=== PATIENT | female | born 1995 | race African-American/Black ===

== ENCOUNTER 2017-12-18 13:16 | Emergency (ER) | payer BC ==
[2017-12-18 15:02] VITALS: BP 126/65
--- NOTE | 2017-12-18 15:25 | UC ---
Throat Pain/Nasal Issac HPI - HPI Summary HPI Summary: [address] x 3 days no f/c no n/v/d mild GARSIA and myalgias taking liquids OK - History of Current Complaint Chief Complaint: UCRespiratory Stated Complaint: SORE THROAT Time Seen by Provider: 12/18/17 15:14 Hx Obtained From: Patient Hx Last Menstrual Period: 11/20/17 Onset/Duration: Gradual Onset, Lasting Days Severity: Severe Pain Intensity: 10 Cough: None - Epiglottits Risk Factors Epiglottis Risk Factors: Negative - Allergies/Home Medications Allergies/Adverse Reactions: Allergies Allergy/AdvReac Type Severity Reaction Status Date / Time No Known Allergies Allergy Verified 12/18/17 15:01 Home Medications: Home Medications Acetaminophen [Acetaminophen Extra Strength] 1,000 mg PO 12/18/17 [History] Ibuprofen 600 mg PO 12/18/17 [History] PMH/Surg Hx/FS Hx/Imm Hx Previously Healthy: Yes - Surgical History Surgical History: None - Family History Known Family History: Positive: Hypertension - Social History Alcohol Use: None Substance Use Type: None Smoking Status (MU): Never Smoked Tobacco Review of Systems Constitutional: Negative Skin: Negative Eyes: Negative ENT: Sore Throat Respiratory: Negative Cardiovascular: Negative Gastrointestinal: Negative Genitourinary: Negative Motor: Negative Neurovascular: Negative Musculoskeletal: Negative Neurological: Negative Psychological: Negative Is Patient Immunocompromised?: No All Other Systems Reviewed And Are Negative: Yes Physical Exam Triage Information Reviewed: Yes Appearance: Well-Appearing, No Pain Distress, Well-Nourished Vital Signs: Initial Vital Signs Temp 98.0 F 12/18/17 14:58 Pulse 71 12/18/17 14:58 Resp 20 12/18/17 14:58 BP 126/65 12/18/17 14:58 Pulse Ox 100 12/18/17 14:58 Eyes: Positive: Conjunctiva Clear ENT: Positive: Hearing grossly normal, TMs normal, Tonsillar swelling, Tonsillar exudate, Uvula midline. Negative: Trismus, Muffled voice, Hoarse voice, Dental tenderness, Sinus tenderness Dental Exam: Normal Neck: Positive: Supple, Tenderness @ - ant cervical, Enlarged Nodes @ - ant cervical Respiratory: Positive: Lungs clear, Normal breath sounds, No respiratory distress, No accessory muscle use Cardiovascular: Positive: RRR, No Murmur Musculoskeletal: Positive: ROM Intact, No Edema Neurological: Positive: Alert Psychological Exam: Normal Skin Exam: Normal Throat Pain/Nasal Course/Dx - Course Assessment/Plan: STREP (-). will start antibiotics. advised pt to return for worsening symptoms or if not better in 3-4 days. If still ill at that point may need blood work to r/o or r/i mono - Differential Dx/Diagnosis Provider Diagnoses: acuted exudative tonsillitis Discharge - Discharge Plan Condition: Stable Disposition: HOME Prescriptions: Cephalexin CAP* [Keflex CAP*] 500 mg PO BID #20 cap predniSONE [Prednisone] 60 mg PO DAILY #9 tab Patient Education Materials: Tonsillitis (ED) Referrals: No Primary Care Phys,NOPCP [Primary Care Provider] - Additional Instructions: rest fluids tylenol recheck in 3-4 days if not markedly better recheck RHEA for worsening symptoms
== END 2017-12-18 15:30 | disposition home or self-care (01) ==
LOC: UCCORT 13:16
DX: J03.90 Acute tonsillitis, unspecified (principal)
CPT/HCPCS: 87651; 99201; G0463